=== PATIENT | female | born 1995 | race Caucasian/White ===

== ENCOUNTER 2018-02-11 13:55 | Emergency (ER) | payer MEDICAID ==
[~2018-02-11] VITALS: Ht 157.5 cm; Wt 54.0 kg
[2018-02-11 14:48] VITALS: BP 103/68
--- NOTE | 2018-02-11 14:53 | Emergency Room Report ---
History of Present Illness General Chief Complaint: Nausea, Vomiting, and Diarrhea Source: Patient Present Illness HPI 22-year-old female presents to the emergency department complaining of nausea and diarrhea in addition to increased fatigue 3 days. Patient reports she checked at home which was negative. Patient states that her last period was very scant and not consistent with normal character of her periods. Patient denies actual vomiting she denies melena or hematochezia. Patient denies abdominal tenderness. Patient reports intermittent abdominal bloating followed by episodes of diarrhea. She denies recent travel or ill contacts. She denies fevers, chills, constipation or rashes. Denies hx of anemia. denies lightheadedness or recent abx use. She denies dysuria, hematuria or urinary frequency Denies CP, Palpitations, LOC, AMS, dizziness, Changes in Vision, Sensation, paresthesias, or a sudden severe headache. Allergies: Coded Allergies: No Known Allergies (Unverified , 02/11/18) Patient History Past Medical History: see triage record Past Surgical History: none Pertinent Family History: none Last Menstrual Period: now Now: No Reviewed Nursing Documentation: PMH: Agreed, PSxH: Agreed Nursing Documentation-PMH Past Medical History: No Stated History Review of Systems All Other Systems: negative except mentioned in HPI Physical Exam Vital Signs Date Time Temp Pulse Resp B/P (MAP) Pulse Ox O2 Delivery O2 Flow Rate FiO2 02/11/18 14:11 97.8 70 18 103/68 98 Room Air 97.9 Sp02 EP Interpretation: reviewed, normal General Appearance: no apparent distress, alert, GCS 15, non-toxic Head: normocephalic, atraumatic ENT: hearing grossly normal, normal voice Neck: full range of motion Respiratory: lungs clear, normal breath sounds, no wheezing, speaking full sentences Cardiovascular #1: regular rate, rhythm, normal capillary refill Gastrointestinal: normal bowel sounds - hyperactive BS in all 4 quadrants. , non tender, soft, non-distended, no guarding Genitourinary: normal inspection, no CVA tenderness Musculoskeletal: back normal, gait/station normal, normal range of motion, non- tender Neurologic: alert, oriented x3, responsive, motor strength/tone normal, sensory intact, normal gait, speech normal, grossly normal Psychiatric: judgement/insight normal Skin: normal color, no rash, warm/dry, well hydrated Medical Decision Making PA Attestation Dr. Lofton is my supervising Physician whom patient management has been discussed with. Diagnostic Impression: Primary Impression: Urinary tract infection Qualified Codes: N30.01 - Acute cystitis with hematuria Additional Impression: Diarrhea in adult patient ER Course 22-year-old female presents to the emergency department complaining of nausea and diarrhea in addition to increased fatigue 3 days. Patient reports she checked at home which was negative. Patient states that her last period was very scant and not consistent with normal character of her periods. Patient denies actual vomiting she denies melena or hematochezia. Patient denies abdominal tenderness. Patient reports intermittent abdominal bloating followed by episodes of diarrhea. She denies recent travel or ill contacts. She denies fevers, chills, constipation or rashes. Denies hx of anemia. denies lightheadedness or recent abx use. She denies dysuria, hematuria or urinary frequency Denies CP, Palpitations, LOC, AMS, dizziness, Changes in Vision, Sensation, paresthesias, or a sudden severe headache. Ddx considered but are not limited to GE, colitis, acute appy, SBO, Cyclical Vomiting secondary to THC, UTI, or . Vital signs: pt. is afebrile, H&PE are most consistent with GE most likely viral in etiology, no evidence to suggest acute abdomen on physical exam. ORDERS: -Urine Hcg: Negative. -Urine Hcg: suspicious for infection given elevated WBC's and few bacteria. ED INTERVENTIONS: -Bentyl PO DISCHARGE: At this time pt. is stable for d/c to home. Will provide printed patient care instructions, and any necessary prescriptions. Care plan and follow up instructions have been discussed with the patient prior to discharge. Labs Test 02/11/18 14:25 Urine Color Yellow Urine Appearance Clear Urine pH 5 (4.5-8.0) Urine Specific [place] 1.020 (1.005-1.035) Urine Protein 1+ (NEGATIVE) Urine Glucose (UA) Negative (NEGATIVE) Urine Ketones Negative (NEGATIVE) Urine Occult Blood 2+ (NEGATIVE) Urine Nitrite Negative (NEGATIVE) Urine Bilirubin Negative (NEGATIVE) Urine Urobilinogen Normal MG/DL (0.0-1.0) Urine Leukocyte Esterase 1+ (NEGATIVE) Urine RBC 5-10 /HPF (0 - 2) Urine WBC 2-4 /HPF (0 - 2) Urine Squamous Epithelial Cells Few /LPF (NONE/OCC) Urine Bacteria Few /HPF (NONE) Urine HCG, Qualitative Negative (NEGATIVE) Last Vital Signs Date Time Temp Pulse Resp B/P (MAP) Pulse Ox O2 Delivery O2 Flow Rate FiO2 02/11/18 14:48 97.9 67 18 103/68 98 Room Air 97.9 Disposition: HOME, SELF-CARE Condition: Stable Scripts Ondansetron Odt* (ZOFRAN ODT*) 4 Mg Tab.rapdis 4 MG ORAL Q6H Y for Nausea & Vomiting, #12 TAB Prov: Sylvia Taylor 02/11/18 Dicyclomine Hcl* (DICYCLOMINE HCL*) 10 Mg Capsule 10 MG PO QID, #16 CAP Prov: Sylvia Taylor 02/11/18 Nitrofurantoin Monohyd/M-Cryst* (MACROBID 100 MG*) 100 Mg Capsule 100 MG ORAL EVERY 12 HOURS for 5 Days, #10 CAP Prov: Sylvia Taylor 02/11/18 Departure Forms: Return to Work Return to Work Date: Feb 14, 2018 Work Restrictions: None Return to Full Activity: Feb 14, 2018 Patient Instructions: Diarrhea, Adult, [id number], Food Choices to Help Relieve Diarrhea, Adult, Urinary Tract Infection, [id number] Additional Instructions: Take medications as directed. * Drink plenty of fluids to stay hydrated * Follow up with a Primary Care Provider in 3-5 days, even if your symptoms have resolved. --Please review list of primary care clinics, if you do not already have a primary care provider Return sooner to ED if new symptoms occur, or current symptoms become worse. - Please note that this Emergency Department Report was dictated using [employer] director technology software, occasionally this can lead to erroneous entry secondary to interpretation by the dictation equipment. Sylvia Taylor Feb 11, 2018 14:52
[2018-02-11] MEDS ORDERED: Dicyclomine HCl 10mg/5ml oral soln ORAL ONE (15:00)
[2018-02-11 15:18] LABS: APPEARANCE,URINE CLEAR; BILIRUBIN, URINE NEGATIVE (NEGATIVE); GLUCOSE, URINE (UA) NEGATIVE (NEGATIVE); KETONES,URINE NEGATIVE (NEGATIVE); LEUKOCYTE ESTERASE ,URINE 1+ (NEGATIVE); NITRITE,URINE NEGATIVE (NEGATIVE); PH,URINE 5 (4.5-8.0); PROTEIN,URINE 1+ (NEGATIVE); UROBILINOGEN,URINE NORMAL MG/DL (0.0-1.0)
[2018-02-11 15:19] LABS: COLOR,URINE YELLOW
[2018-02-11] MEDS ORDERED: DICYCLOMINE HCL10 MG PO (15:46)
[2018-02-11] MEDS ORDERED: NITROFURANTOIN100 M2 ORAL (15:46)
[2018-02-11] MEDS ORDERED: ZOFRAN ODT4 MG ORAL (15:46)
[2018-02-11 16:18] VITALS: BP 103/68
== END 2018-02-11 16:00 | disposition home or self-care (01) ==
LOC: EMR 15:33
DX: N39.0 Urinary tract infection, site not specified (principal); R19.7 Diarrhea, unspecified; R11.0 Nausea
CPT/HCPCS: 81003; 81025; 99284